=== PATIENT | female | born 1995 | race Caucasian/White ===

== ENCOUNTER 2023-10-20 00:43 | Emergency (ER) | payer MEDICAID, OTHER ==
[~2023-10-20] VITALS: Ht 160 cm; Wt 55.8 kg
[2023-10-20 01:00] VITALS: BP 118/82; PULSE 105; RESP 18; O2SAT 96
[2023-10-20] MEDS: ACETAMINOPHEN 325 MG TAB PO ONE (01:20)
[2023-10-20 02:39] LABS: COVID19 ANTIGEN SOFIA FIA NEGATIVE (NEGATIVE); Rapid Influenza A Negative (Negative); Rapid Influenza B Negative (Negative)
[2023-10-20 02:48] LABS: Urine Bacteria FEW /hpf (None Seen); Urine Blood 2+ /uL (Negative); Urine Clarity Clear (Clear); Urine Color Colorless (Yellow); Urine Protein, UAD Negative (Negative); Urine Specific Gravity 1.003 (1.001-1.035); Urine Urobilinogen Normal (Negative); Urine WBC 3 /hpf (0 - 5); Urine pH 6.5 (5.0-9.0)
[2023-10-20] MEDS ORDERED: ACET500T58 PO (03:26)
[2023-10-20] MEDS ORDERED: CIPR500T4 PO (03:26)
[2023-10-20 03:28] VITALS: TEMP 99
== END 2023-10-20 03:38 | disposition home or self-care (01) ==
LOC: ER 00:43
DX: K52.9 Noninfective gastroenteritis and colitis, unspecified (principal); Z20.822 Contact with and (suspected) exposure to COVID-19; Z79.899 Other long term (current) drug therapy; Z88.8 Allergy status to other drugs, medicaments and biological substances
CPT/HCPCS: 36415; 81001; 81025; 87426; 87804